=== PATIENT | female | born 1975 | race Caucasian/White ===

== ENCOUNTER → 2017-12-29 | Day surgery (SDC) | payer OTHER | END | disposition home or self-care (01) | LOC: CIR.AMB 08:18 | DX: O02.1 Missed abortion (principal); Z3A.10 10 weeks gestation of pregnancy ==

== ENCOUNTER 2018-11-07 08:45 | Emergency (ER) | payer OTHER ==
[~2018-11-07] VITALS: Ht 157.5 cm; Wt 74.8 kg
[2018-11-07] MEDS ORDERED: CELEBREX100 MG PO (10:57)
[2018-11-07] MEDS ORDERED: SKELAXIN800 MG PO (10:57)
== END 2018-11-07 11:36 | disposition home or self-care (01) ==
LOC: ER 08:45
DX: M94.0 Chondrocostal junction syndrome [Tietze] (principal); R07.89 Other chest pain; F41.8 Other specified anxiety disorders

== ENCOUNTER 2020-07-05 16:55 | Emergency (ER) | payer OTHER ==
[~2020-07-05] VITALS: Ht 157.5 cm; Wt 74.8 kg
[~2020-07-05 16:55] MED LIST: CELEBREX100 MG PO; SKELAXIN800 MG PO
[2020-07-05] MEDS ORDERED: MEDROLPACK PO (17:57)
[2020-07-05] MEDS ORDERED: ALLEGRA ALLERG180 MG PO (17:57)
== END 2020-07-05 18:16 | disposition home or self-care (01) ==
LOC: ER 16:55
DX: L50.8 Other urticaria (principal)